=== PATIENT | male | born 1990 ===

== ENCOUNTER 2021-01-06 18:27 | Emergency (ER) | payer SELFPAY ==
[~2021-01-06] VITALS: Ht 172.7 cm; Wt 88.6 kg
[2021-01-06] MEDS ORDERED: LORazepam 1 MG tablet PO ONE (19:00)
--- NOTE | 2021-01-06 19:04 | NUR ---
PT brought straight back, feeling paranoid and feeling like people are chasing him and going to kill him. [place] away from what he feels like is people chasing him. Dr. العراقي consulted, ativan 2mg PO ordered and given without issue.
[2021-01-06] MEDS ORDERED: OLANZapine 5mg rapidly disint. tablet PO STA (19:06)
--- NOTE | 2021-01-06 19:11 | NUR ---
Spoke with Dr. Martin and made him aware of the patient's paranoia. Med orders received.
--- NOTE | 2021-01-06 19:18 | NUR ---
Per Eva carreon her was hospitalized for only one day at their facility and was discharged from there earlier today.
--- NOTE | 2021-01-06 19:39 | NUR ---
The patient is very paranoid and fearful and his HR is 152. He has taken the two mg of ativan and he has take 10mg of the zyprexa zydis 15mg that was ordered. Staff are trying to reassure him to take the rest of the prescribed dose.
--- NOTE | 2021-01-06 20:09 | NUR ---
The patient continues paranoid and would only take the 10mg of the zyprexa zydis.
--- NOTE | 2021-01-06 20:29 | NUR ---
The patient is wanting to go. He is paranoid. coordinator skill training program made aware.
[2021-01-06 20:43] VITALS: BP 136/83
== END 2021-01-06 20:49 | disposition home or self-care (01) ==
LOC: ER 18:27
DX: F22 Delusional disorders (principal); F31.9 Bipolar disorder, unspecified; F20.9 Schizophrenia, unspecified; Z86.69 Personal history of other diseases of the nervous system and sense organs
CPT/HCPCS: 99283